=== PATIENT | female | born 1960 | race Caucasian/White ===

== ENCOUNTER 2017-02-01 09:11 | Emergency (ER) | payer MEDICARE, MEDICAID ==
[2017-02-01 09:28] VITALS: BP 150/70
--- NOTE | 2017-02-01 09:43 | EDM.PDOC ---
ED HPI GENERAL MEDICAL PROBLEM - General Chief Complaint: ENT Problem Stated Complaint: INFECTION IN TOOTH Time Seen by Provider: 02/01/17 09:35 Source of Information: Reports: Patient History Limitations: Reports: No Limitations - History of Present Illness INITIAL COMMENTS - FREE TEXT/NARRATIVE: This 56 yo female patient reports to the ED with a 2 day history of increased pain and swelling in the left lower jaw. The patient reports she has had increased symptoms over the past 2 days, but the area has been bothering her for a couple of months. Onset: Gradual Duration: Constant, Getting Worse Location: Reports: Face Quality: Reports: Ache, Sharp Severity: Moderate Improves with: Reports: None Worsens with: Reports: None Associated Symptoms: Reports: No Other Symptoms Treatments COLLET GLUER: Reports: Acetaminophen, NSAIDS Left Lower Face Pain Score (Numeric/FACES): 8 - Related Data Allergies Allergy/AdvReac Type Severity Reaction Status Date / Time cefprozil [From Cefzil] Allergy Cannot Verified 02/01/17 09:34 Remember Penicillins Allergy Swelling Verified 02/01/17 09:34 Past Medical History Cardiovascular History: Reports: Hypertension Psychiatric History: Reports: Depression - Past Surgical History GI Surgical History: Reports: Cholecystectomy Musculoskeletal Surgical History: Reports: Arthroscopic Knee, Carpal Tunnel, Other (See Below) Other Musculoskeletal Surgeries/Procedures:: back, neck Social & Family History - Tobacco Use Smoking Status *Q: Current Every Day Smoker Years of Tobacco use: 30 Packs/Tins Daily: 1 - Caffeine Use Caffeine Use: Reports: Coffee, Soda - Recreational Drug Use Recreational Drug Use: No ED ROS ENT - Review of Systems Review Of Systems: ROS reveals no pertinent complaints other than HPI. ED EXAM, ENT - Physical Exam Exam: See Below Exam Limited By: No Limitations General Appearance: Alert, WD/WN, Moderate Distress Eye Exam: Bilateral Eye: EOMI, Normal Inspection, PERRL Ears: Normal External Exam, Normal Canal, Hearing Grossly Normal, Normal TMs Nose: Normal Inspection, Normal Mucousa, No Blood Mouth/Throat: Normal Inspection, Normal Gums, Normal Lips, Normal Oropharynx, Dental Abcess, Dental Pain, Dental Tenderness, Dental Trauma Head: Atraumatic, Normocephalic Neck: Normal Inspection, Supple, Non-Tender, Full Range of Motion Respiratory/Chest: No Respiratory Distress, Lungs Clear, Normal Breath Sounds, No Accessory Muscle Use, Chest Non-Tender Cardiovascular: Normal Peripheral Pulses, Regular Rate, Rhythm, No Edema, No Gallop, No JVD, No Murmur, No Rub GI/Abdominal: Normal Bowel Sounds, Soft, Non-Tender, No Organomegaly, No Distention, No Abnormal Bruit, No Mass (Female) Exam: Deferred Rectal (Female) Exam: Deferred Back: Normal Inspection, Full Range of Motion Extremities: Normal Inspection, Normal Range of Motion, Non-Tender, No Pedal Edema, Normal Capillary Refill Neurological: Alert, Oriented, CN II-XII Intact, Normal Cognition, Normal Gait, Normal Reflexes, No Motor/Sensory Deficits Psychiatric: Normal Affect, Normal Mood Skin: Warm, Dry, Intact, Normal Color, No Rash Lymphatic: No Adenopathy Course - Vital Signs Last Recorded V/S: Last Vital Signs Temp 36.4 C 02/01/17 09:27 Pulse 88 02/01/17 09:27 Resp 16 02/01/17 09:27 BP 150/70 H 02/01/17 09:27 Pulse Ox 96 02/01/17 09:27 Departure - Departure Time of Disposition: 09:40 Disposition: Home, Self-Care 01 Condition: Fair Clinical Impression: Dental abscess, Dental caries - Discharge Information Instructions: Dental Abscess, [id number], Dental Caries, [id number] Forms: ED Department Discharge Care Plan Goals: The patient was advised of the examination results during the visit. The patient was given a script for Clindamycin (300 mg) #40 to take 1 by mouth 4 times per day for 10 days and Viscous Lidocaine (2%) #100 mL to apply 5 mL to a cottonball placed to the area every 6 hours as needed. The patient should visit a dentist as soon as possible. If the patient has any additional symptoms or further concerns, the patient should follow-up with her primary care facility, a dentist or return to the emergency department.
== END 2017-02-01 09:49 | disposition home or self-care (01) ==
LOC: DL.ED 09:11
DX: K04.7 Periapical abscess without sinus (principal); K02.9 Dental caries, unspecified; F17.210 Nicotine dependence, cigarettes, uncomplicated; I10 Essential (primary) hypertension; Z90.49 Acquired absence of other specified parts of digestive tract; Z98.890 Other specified postprocedural states; Z88.0 Allergy status to penicillin; Z88.1 Allergy status to other antibiotic agents
CPT/HCPCS: 99282; 99283

== ENCOUNTER 2022-09-20 14:38 | Emergency (ER) | payer MEDICARE, MEDICAID ==
[2022-09-20 14:47] VITALS: BP 175/101; PULSE 108
[2022-09-20 15:31] LABS: ANION GAP 14.2 mEq/L (7-13)
== END 2022-09-20 15:48 | disposition home or self-care (01) ==
LOC: DL.ED 14:38
DX: H57.89 Other specified disorders of eye and adnexa (principal); T38.0X5A Adverse effect of glucocorticoids and synthetic analogues, initial encounter; I10 Essential (primary) hypertension; E11.9 Type 2 diabetes mellitus without complications; J44.9 Chronic obstructive pulmonary disease, unspecified; E66.9 Obesity, unspecified; F17.210 Nicotine dependence, cigarettes, uncomplicated; Z68.32 Body mass index [BMI] 32.0-32.9, adult; Z88.0 Allergy status to penicillin; Z88.1 Allergy status to other antibiotic agents; Z88.8 Allergy status to other drugs, medicaments and biological substances
CPT/HCPCS: 36415; 80053; 84484; 85025; 93005; 93010; 99284; 99285